=== PATIENT | female | born 1985 | race Caucasian/White ===

== ENCOUNTER 2021-06-11 13:42 | Emergency (ER) | payer OTHER ==
[2021-06-11 14:39] LABS: BILIRUBIN NEGATIVE (NEGATIVE); BLOOD 2+ Ery/uL (NEGATIVE); CLARITY CLEAR (CLEAR); COLOR YELLOW (YELLOW); GLUCOSE (U) 3+ mg/dL (NORMAL); LEUKOCYTES 1+ Leu/uL (NEGATIVE); NITRITE POSITIVE (NEGATIVE); PROTEIN 2+ mg/dL (NEGATIVE); SPECIFIC GRAVITY >=1.030 (1.001-1.030); UROBILINOGEN 0.2 mg/dL (0.2-1.0); pH 5.5 (5.0-9.0)
[2021-06-11 14:55] LABS: BACTERIA TRACE; URINARY WBC 20-50
== END 2021-06-11 16:46 | disposition left against medical advice (07) ==
LOC: FER 13:42
PROVIDERS: Emergency Medicine
DX: R30.0 Dysuria (principal); Z53.8 Procedure and treatment not carried out for other reasons
CPT/HCPCS: 81001; 99281